=== PATIENT | male | born 1970 | race Caucasian/White ===

== ENCOUNTER 2018-12-05 01:17 | Emergency (ER) | payer OTHER ==
[2018-12-05 01:23] VITALS: BP 136/88; PULSE 82; RESP 18; TEMP 97.3
[2018-12-05] MEDS ORDERED: ACET/COD 300 MG/30 MG STARTER PACK 6 TAB BTL PO STA (01:42)
[2018-12-05] MEDS ORDERED: KETOROLAC 30 MG/ML 1 ML VIAL IM STA (01:42)
[2018-12-05] MEDS ORDERED: CYCLOBENZAPRINE 10MG STARTER 3 TAB BTL PO STA (01:42)
[2018-12-05] MEDS ORDERED: LIDOCAINE 5% PATCH TOPICAL STA (01:44)
--- NOTE | 2018-12-05 01:45 | ED ---
Back Pain HPI - General Source: patient Limitations: no limitations <Felicia Flaherty - Last Filed: 12/05/18 01:52> <Aline Grimes - Last Filed: 12/05/18 06:41> - General Chief Complaint: Back Pain/Injury Stated Complaint: Low Back Pain Time Seen by Provider: 12/05/18 01:39 - History of Present Illness Initial Comments: 38 old male patient presents to the emergency department today for evaluation of mid low back pain. Patient states that a couple times a year he develops an increase in his usual low back pain. Patient states that things seemed to worsen this morning. He states it is mid low back pain hurts worse with any twisting or bending motion. States the pain increases with attempts at changing from a lying to a sitting position. Denies any radiation of the pain down his legs. Denies any saddle anesthesia or loss of bowel or bladder control. He denies any fever, chills, abdominal pain, hematuria, dysuria, urinary frequency, urinary urgency. Denies any constipation, diarrhea, hematochezia, or melena. Patient denies any recent rash, shortness breath, chest pain, dizziness, weakness, hematuria, dysuria, urinary urgency, urinary frequency, headache, visual changes, or any other complaints. (Felicia Flaherty) - Related Data Previous Rx's Medication Instructions Recorded Cyclobenzaprine [Flexeril] 10 mg PO TID #15 tab 12/05/18 Ibuprofen [Motrin] 600 mg PO Q8HR PRN #30 tab 12/05/18 Lidocaine [Lidoderm 5% Patch] 1 patch TRANSDERM DAILY #5 patch 12/05/18 Allergies Allergy/AdvReac Type Severity Reaction Status Date / Time No Known Allergies Allergy Verified 12/05/18 01:24 Review of Systems ROS Other: All systems not noted in ROS Statement are negative. <Felicia Flaherty - Last Filed: 12/05/18 01:52> ROS Other: All systems not noted in ROS Statement are negative. <Aline rGimes - Last Filed: 12/05/18 06:41> ROS Statement: Those systems with pertinent positive or pertinent negative responses have been documented in the HPI. Past Medical History Past Medical History: No Reported History History of Any Multi-Drug Resistant Organisms: None Reported Additional Past Surgical History / Comment(s): right knee Smoking Status: Current every day smoker Past Alcohol Use History: None Reported Past Drug Use History: None Reported <Felicia Flaherty M - Last Filed: 12/05/18 01:52> General Exam Limitations: no limitations General appearance: alert, in no apparent distress, other (Physical well- developed, well-nourished adult male patient in no acute distress. Vital signs upon presentation are temperature 97.3F, pulse 82, respirations 18, blood pressure 136/88, pulse ox 100% on room air.) Eye exam: Present: normal appearance, PERRL, EOMI. Absent: scleral icterus, conjunctival injection, periorbital swelling ENT exam: Present: normal exam, normal oropharynx, mucous membranes moist Respiratory exam: Present: normal lung sounds bilaterally. Absent: respiratory distress, wheezes, rales, rhonchi, stridor Cardiovascular Exam: Present: regular rate, normal rhythm, normal heart sounds. Absent: systolic murmur, diastolic murmur, rubs, gallop, clicks GI/Abdominal exam: Present: soft, normal bowel sounds. Absent: distended, tenderness, guarding, rebound, rigid Extremities exam: Present: normal inspection, full ROM, normal capillary refill, other (Skin to the extremities are pink, warm, dry. Cap refills less than 3 seconds. Post tibial pulses 2+ and equal bilaterally.). Absent: tenderness, pedal edema, joint swelling, calf tenderness Back exam: Present: normal inspection. Absent: paraspinal tenderness, vertebral tenderness Neurological exam: Present: alert, oriented X3, CN II-XII intact Psychiatric exam: Present: normal affect, normal mood Skin exam: Present: warm, dry, intact, normal color. Absent: rash <Felicia Flaherty M - Last Filed: 12/05/18 01:52> Course Vital Signs 12/05/18 01:19 Temperature 97.3 F L Pulse Rate 82 Respiratory 18 Rate Blood Pressure 136/88 O2 Sat by Pulse 100 Oximetry Medical Decision Making <Felicia Flaherty M - Last Filed: 12/05/18 01:52> <Aline Grimes P - Last Filed: 12/05/18 06:41> - Medical Decision Making 48 year-old male patient presented to the emergency department today for evaluation of mid low back pain. Physical examination is relatively unremarkable. There is no spinal tenderness no paraspinal tenderness. Patient is neurologically intact with no focal deficits. No concerning symptoms for cauda equina. Patient does report increased pain with movement and position changes. Patient reports she's had similar back pain episodes in the past. Patient physical exam is consistent with mechanical low back pain. He did drive himself here this evening so he'll be given an IM dose of Toradol. He'll be discharged with starter packs with Tylenol with Codeine and Flexeril. He is instructed to perform gentle range of motion and to apply ice and heat to the low back. He will be given a Lidoderm patch as well. He is instructed to follow-up with his primary care physician for recheck in 1-2 days. Return parameters were discussed in detail. He verbalizes understanding and agrees with this plan. (Felicia Flaherty) I was available for consultation in the emergency department. The history and physical exam were done by the Midlevel Provider. Medical decision making was done by the Midlevel Provider. The Midlevel Provider did not contact me for this patient's care. I was not directly involved in this patient's care. (Aline Grimes) Disposition Is patient prescribed a controlled substance at d/c from ED?: No Time of Disposition: 01:45 <Felicia Flaherty - Last Filed: 12/05/18 01:52> <Aline Grimes - Last Filed: 12/05/18 06:41> Clinical Impression: Acute exacerbation of chronic low back pain Disposition: HOME SELF-CARE Condition: Good Instructions (If sedation given, give patient instructions): Acute Low Back Pain (ED), Chronic Back Pain (ED), Lower Back Exercises (ED) Additional Instructions: Alternate ice and heat to the low back. Take medications as directed. Perform gentle range of motion. Follow up with your primary care physician for recheck in 1-2 days. Return to the emergency department immediately for any new, worsening, or concerning symptoms. Prescriptions: Cyclobenzaprine [Flexeril] 10 mg PO TID #15 tab Lidocaine [Lidoderm 5% Patch] 1 patch TRANSDERM DAILY #5 patch Ibuprofen [Motrin] 600 mg PO Q8HR PRN #30 tab PRN Reason: Pain Referrals: Jarad Archer MD [Primary Care Provider] - 1-2 days
== END 2018-12-05 01:55 | disposition home or self-care (01) ==
LOC: EC 01:17
DX: G89.29 Other chronic pain (principal); M54.5 Low back pain; F17.200 Nicotine dependence, unspecified, uncomplicated; Z98.890 Other specified postprocedural states
CPT/HCPCS: 99283; 96372; J1885